=== PATIENT | female | born 1945 | race Caucasian/White ===

== ENCOUNTER 2018-09-08 12:09 | Inpatient (IN) ==
[2018-09-08] MEDS ORDERED: ASPIRIN 325 MG TABLET PO STA (12:40)
[2018-09-08] MEDS ORDERED: NITROGLYCERIN 2% OINT 1 INCH/GM PACK TOP STA (12:40)
[2018-09-08 12:52] LABS: Basophils % 0.3 % (0.0-0.8); Eosinophils # 0.1 10*3/uL (0.0-0.87); Eosinophils % 1.1 % (0.00-10.9); Hematocrit 34.2 VOL% (35.7-47.0); Hemoglobin 11.1 GM/DL (12.0-16.0); Immature Granulocytes % 0.5 %; Immature Granulocytes Absolute 0.03 #; Lymphocytes # 0.8 10*3/uL (1.4-4.0); Lymphocytes % 12.7 % (21.3-54.2); Mean Corpuscular HGB Conc 32.5 GM/DL (32-36); Mean Corpuscular Volume 88.6 FL (87-102); Mean Platelet Volume 9.4 FL (9.6-12.0); Monocytes % 3.5 % (1.7-12.7); Neutrophils % 81.9 % (38.7-73.9); Platelet Count 187 T/CUMM (130-400); Red Blood Count 3.86 MC/CUMM (3.8-5.5); Red Cell Distribution Width 12.5 % (9.3-17.3); White Blood Count 6.3 T/CUMM (4-12)
[2018-09-08 13:02] LABS: Partial Thromboplastin Time 26.7 SECS (0-40)
[2018-09-08 13:17] LABS: Alanine Aminotransferase 18 U/L (13-56); Albumin 3.4 G/DL (3.4-5.0); Alkaline Phosphatase 81 U/L (45-117); Aspartate Amino Transferase 15 U/L (0-37); Bilirubin,Total < 0.39 MG/DL (0.2-1.0); Blood Urea Nitrogen 17 MG/DL (7-18); Calcium 9.7 MG/DL (8.5-10.1); Glucose 196 MG/DL (74-106); Osmolality,Calculated 287.3 MOS/KG (273-304)
[2018-09-08 13:23] LABS: Apearance,Urine CLOUDY (Clear); Bacteria,Urine Occasional /HPF (Few); Bilirubin,Urine Negative (Negative); Blood, Urine Negative (Negative); Glucose,Urine (UA) Negative (Negative); Hyaline Casts,Urine 1 /LPF (0-3); Ketones,Urine Negative (Negative); Mucus,Urine Occasional /LPF (Occasional); Nitrite,Urine Positive (Negative); Protein,Urine Negative; RBC,Urine 15 /HPF (0-4); Squamous Epithelial Cell,Urine Occasional /HPF (0-10); Urine Color Yellow (Yellow); Urine Specific Gravity 1.025 (1.001-1.035); Urine Urobilinogen < 2.0 EU/DL (0.2-1.0); WBC,Urine 8 /HPF (0-6)
[2018-09-08 13:49] LABS: Barbiturates Screen,Urine Negative (Negative); Benzodiazepines Screen,Urine Positive (Negative); Cannabinoid Screen,Urine Negative (Negative); Opiate Screen,Urine Positive (Negative); Phencyclidine Screen,Urine Negative (Negative)
[2018-09-08] MEDS ORDERED: MAGNESIUM SULF RIDER 4 GM in PREMIX 1 EACH IV PRN (14:11)
[2018-09-08] MEDS ORDERED: ACETAMINOPHEN 325 MG TABLET PO PRN (14:11)
[2018-09-08] MEDS ORDERED: MAGNESIUM SULF RIDER 2 GM in PREMIX 1 EACH IV PRN (14:11)
[2018-09-08] MEDS ORDERED: ONDANSETRON 4 MG/2 ML VIAL IV PRN (14:11)
[2018-09-08] MEDS ORDERED: LEVOFLOXACIN INJ 500 MG in PREMIX 1 EACH IV STA (14:29)
[2018-09-08] MEDS: PANTOPRAZOLE 40 MG TABLET PO SCH (15:15)
[2018-09-08] MEDS ORDERED: ALUM/MAG/SIMETH/LIDO VISC 1:1 30 ML BOTTLE PO STA (16:14)
[2018-09-08] MEDS ORDERED: METOPROLOL TARTRATE 25 MG TABLET PO STA (16:53)
[2018-09-08] MEDS ORDERED: GLUCAGON 1 MG VIAL IM PRN (16:57)
[2018-09-08] MEDS ORDERED: DEXTROSE 50% 25 GM/50 ML SYRINGE IV PRN (16:57)
[2018-09-08] MEDS ORDERED: GABAPENTIN 400 MG CAPSULE PO SCH (17:00)
[2018-09-08] MEDS: GABAPENTIN 600 MG TABLET PO SCH (20:53)
[2018-09-08] MEDS: ZALEPLON 5 MG CAPSULE PO PRN (20:54)
[2018-09-08] MEDS: ROSUVASTATIN 20 MG TABLET PO SCH (21:01)
[2018-09-08] MEDS: INSULIN REGULAR 100 UNIT/ML SUBCUT SCH (21:04)
[2018-09-09] MEDS: HYOSCYAMINE 0.125 MG TABLET PO SCH ×4 (00:45→18:06)
[2018-09-09] MEDS: ZALEPLON 5 MG CAPSULE PO PRN ×2 (00:45→21:43)
[2018-09-09 04:56] LABS: Basophils % 0.2 % (0.0-0.8); Hematocrit 32.2 VOL% (35.7-47.0); Hemoglobin 10.7 GM/DL (12.0-16.0); Immature Granulocytes % 0.3 %; Immature Granulocytes Absolute 0.02 #; Lymphocytes # 0.5 10*3/uL (1.4-4.0); Lymphocytes % 8.5 % (21.3-54.2); Mean Corpuscular HGB Conc 33.2 GM/DL (32-36); Mean Platelet Volume 9.4 FL (9.6-12.0); Monocytes % 2.5 % (1.7-12.7); Neutrophils % 88.5 % (38.7-73.9); Platelet Count 183 T/CUMM (130-400); Red Cell Distribution Width 12.2 % (9.3-17.3); White Blood Count 6.1 T/CUMM (4-12)
[2018-09-09 05:27] LABS: Osmolality,Calculated 287.3 MOS/KG (273-304); Risk Ratio 5.68; Thyroid Stimulating Hormone 0.028 uIU/ml (0.358-3.74); VLDL CHOLESTEROL 37.2 MG/DL
[2018-09-09] MEDS: LEVOTHYROXINE 88 MCG TABLET PO SCH (06:10)
[2018-09-09] MEDS ORDERED: ASPIRIN EC 81 MG TABLET PO SCH (09:00)
[2018-09-09 09:07] LABS: Apearance,Urine CLEAR (Clear); Bilirubin,Urine Negative (Negative); Blood, Urine Negative (Negative); Glucose,Urine (UA) Negative (Negative); Ketones,Urine Negative (Negative); Nitrite,Urine Negative (Negative); Protein,Urine Negative; RBC,Urine <1 /HPF (0-4); Urine Color Straw (Yellow); Urine Specific Gravity 1.014 (1.001-1.035); Urine Urobilinogen < 2.0 EU/DL (0.2-1.0)
[2018-09-09] MEDS: PANTOPRAZOLE 40 MG TABLET PO SCH (09:14)
[2018-09-09] MEDS: amLODIPine 5 MG TABLET PO SCH (09:15)
[2018-09-09] MEDS: GABAPENTIN 600 MG TABLET PO SCH ×4 (09:15→21:43)
[2018-09-09] MEDS: LOSARTAN 50 MG TABLET PO SCH (09:15)
[2018-09-09] MEDS: INSULIN REGULAR 100 UNIT/ML SUBCUT SCH ×4 (09:17→21:44)
[2018-09-09] MEDS ORDERED: DIAZEPAM 5 MG TABLET PO ONE (11:50)
[2018-09-09] MEDS ORDERED: POTASSIUM CHLORIDE RIDER 10 MEQ in PREMIX 1 EACH IV PRN (11:50)
[2018-09-09] MEDS ORDERED: MAGNESIUM SULF RIDER 2 GM in PREMIX 1 EACH IV PRN (11:50)
[2018-09-09] MEDS ORDERED: diphenhydrAMINE CAP 25 MG CAPSULE PO ONE (11:50)
[2018-09-09 11:53] LABS: Free T4 (Free Thyroxine) 1.54 NG/DL (0.76-1.46)
[2018-09-09] MEDS ORDERED: METOPROLOL TARTRATE 25 MG TABLET PO SCH (12:00)
[2018-09-09] MEDS: SODIUM CHLORIDE 0.9% 1,000 ML IV SCH ×2 (15:41→21:39)
[2018-09-09] MEDS ORDERED: MIDAZOLAM 2 MG/2 ML VIAL ONE (15:54)
[2018-09-09] MEDS ORDERED: LIDOCAINE 1% 20 ML VIAL ONE (15:54)
[2018-09-09] MEDS ORDERED: fentaNYL 100 MCG/2 ML VIAL ONE ×2 (15:54→17:16)
[2018-09-09] MEDS ORDERED: HEPARIN 5,000 UNIT/1 ML VIAL ONE (16:05)
[2018-09-09] MEDS ORDERED: ASPIRIN CHEW 81 MG TABLET PO ONE (16:20)
[2018-09-09] MEDS ORDERED: TIROFIBAN 5,000 MCG/100 ML PREMIX IV ONE (16:20)
[2018-09-09] MEDS ORDERED: TICAGRELOR 90 MG TABLET ONE (16:31)
[2018-09-09] MEDS ORDERED: TIROFIBAN 5,000 MCG/100 ML PREMIX IV SCH (16:33)
[2018-09-09] MEDS ORDERED: ALUM/MAG/SIMETH/LIDO VISC 1:1 30 ML BOTTLE PO ONE (17:50)
[2018-09-09] MEDS: LEVOFLOXACIN 250 MG TABLET PO SCH (18:06)
[2018-09-09 18:54] LABS: Troponin I < 0.015 NG/ML (0.00-0.045)
[2018-09-09] MEDS: CARVEDILOL 3.125 MG TABLET PO SCH ×2 (21:41→21:43)
[2018-09-09] MEDS: ACETAMINOPHEN 325 MG TABLET PO SCH (21:42)
[2018-09-09] MEDS: traMADol 50 MG TABLET PO SCH (21:42)
[2018-09-09] MEDS: TICAGRELOR 90 MG TABLET PO SCH (21:43)
[2018-09-09] MEDS: ROSUVASTATIN 20 MG TABLET PO SCH (21:44)
[2018-09-10] MEDS: HYOSCYAMINE 0.125 MG TABLET PO SCH ×4 (00:05→21:01)
[2018-09-10 01:46] LABS: Basophils % 0.1 % (0.0-0.8); Hematocrit 29.7 VOL% (35.7-47.0); Hemoglobin 10.1 GM/DL (12.0-16.0); Immature Granulocytes % 0.6 %; Immature Granulocytes Absolute 0.04 #; Lymphocytes # 0.7 10*3/uL (1.4-4.0); Lymphocytes % 10.3 % (21.3-54.2); Mean Corpuscular Volume 85.6 FL (87-102); Mean Platelet Volume 9.3 FL (9.6-12.0); Monocytes % 9.2 % (1.7-12.7); Neutrophils % 79.8 % (38.7-73.9); Platelet Count 180 T/CUMM (130-400); Red Blood Count 3.47 MC/CUMM (3.8-5.5); Red Cell Distribution Width 12.6 % (9.3-17.3); White Blood Count 7.2 T/CUMM (4-12)
[2018-09-10 02:02] LABS: Calcium 9.4 MG/DL (8.5-10.1); Osmolality,Calculated 286.1 MOS/KG (273-304)
[2018-09-10] MEDS: LEVOTHYROXINE 88 MCG TABLET PO SCH (06:20)
[2018-09-10] MEDS: INSULIN REGULAR 100 UNIT/ML SUBCUT SCH ×4 (08:42→22:42)
[2018-09-10] MEDS: GABAPENTIN 600 MG TABLET PO SCH ×4 (08:57→21:03)
[2018-09-10] MEDS: LOSARTAN 50 MG TABLET PO SCH (08:57)
[2018-09-10] MEDS: PANTOPRAZOLE 40 MG TABLET PO SCH (08:57)
[2018-09-10] MEDS: TICAGRELOR 90 MG TABLET PO SCH ×2 (08:58→21:01)
[2018-09-10] MEDS: LEVOFLOXACIN 250 MG TABLET PO SCH (08:58)
[2018-09-10] MEDS: ACETAMINOPHEN 325 MG TABLET PO SCH ×2 (08:58→21:15)
[2018-09-10] MEDS: CARVEDILOL 3.125 MG TABLET PO SCH ×2 (08:59→21:02)
[2018-09-10] MEDS: traMADol 50 MG TABLET PO SCH ×2 (08:59→21:02)
[2018-09-10] MEDS: amLODIPine 5 MG TABLET PO SCH (09:00)
[2018-09-10 10:21] LABS: CKMB % 3.6 %
[2018-09-10 10:26] LABS: Troponin I 1.51 NG/ML (0.00-0.045)
[2018-09-10] MEDS ORDERED: oxyCODONE/ACETAMINOPHEN 5-325 MG TABLET PO PRN (14:56)
[2018-09-10] MEDS: ASPIRIN EC 81 MG TABLET PO SCH (15:45)
[2018-09-10] MEDS ORDERED: MAGNESIUM SULF RIDER 2 GM in PREMIX 1 EACH IV ONE (16:18)
[2018-09-10] MEDS: ZALEPLON 5 MG CAPSULE PO PRN (21:04)
[2018-09-10] MEDS: ROSUVASTATIN 20 MG TABLET PO SCH (21:15)
[2018-09-11] MEDS: HYOSCYAMINE 0.125 MG TABLET PO SCH ×3 (00:53→13:05)
[2018-09-11 06:28] LABS: Basophils % 0.3 % (0.0-0.8); Eosinophils % 0.5 % (0.00-10.9); Hematocrit 33.6 VOL% (35.7-47.0); Hemoglobin 11.2 GM/DL (12.0-16.0); Immature Granulocytes % 0.7 %; Immature Granulocytes Absolute 0.04 #; Lymphocytes # 1.3 10*3/uL (1.4-4.0); Lymphocytes % 22.5 % (21.3-54.2); Mean Corpuscular HGB Conc 33.3 GM/DL (32-36); Mean Corpuscular Volume 84.8 FL (87-102); Mean Platelet Volume 9.3 FL (9.6-12.0); Monocytes % 13.3 % (1.7-12.7); Neutrophils % 62.7 % (38.7-73.9); Platelet Count 209 T/CUMM (130-400); Red Blood Count 3.96 MC/CUMM (3.8-5.5); Red Cell Distribution Width 12.5 % (9.3-17.3); White Blood Count 5.7 T/CUMM (4-12)
[2018-09-11] MEDS ORDERED: LEVOTHYROXINE 50 MCG TABLET PO SCH (06:30)
[2018-09-11 06:52] LABS: Calcium 9.4 MG/DL (8.5-10.1)
[2018-09-11] MEDS: LOSARTAN 50 MG TABLET PO SCH (09:12)
[2018-09-11] MEDS: TICAGRELOR 90 MG TABLET PO SCH (09:12)
[2018-09-11] MEDS: traMADol 50 MG TABLET PO SCH (09:12)
[2018-09-11] MEDS: LEVOFLOXACIN 250 MG TABLET PO SCH (09:13)
[2018-09-11] MEDS: ASPIRIN EC 81 MG TABLET PO SCH (09:13)
[2018-09-11] MEDS: GABAPENTIN 600 MG TABLET PO SCH ×2 (09:13→13:04)
[2018-09-11] MEDS: amLODIPine 5 MG TABLET PO SCH (09:13)
[2018-09-11] MEDS: INSULIN REGULAR 100 UNIT/ML SUBCUT SCH ×2 (09:14→13:05)
[2018-09-11] MEDS: CARVEDILOL 3.125 MG TABLET PO SCH (09:14)
[2018-09-11] MEDS: ACETAMINOPHEN 325 MG TABLET PO SCH (09:14)
[2018-09-11] MEDS: PANTOPRAZOLE 40 MG TABLET PO SCH (09:14)
[2018-09-11 12:10] VITALS: BP 130/76
[2018-09-11] MEDS ORDERED: ISOSORBIDE MONONITRATE 30 MG TABLET PO SCH (13:00)
[2018-09-11] MEDS ORDERED: CARVEDILOL 6.25 MG TABLET PO SCH (13:30)
== END 2018-09-11 13:48 | disposition home or self-care (01) | DRG 247 ==
LOC: EDUNIT# → EDBD → N.ED 12:09 → N.EDINP 12:09 → N.TELEN 18:38
PROVIDERS: ADMIT Internal Medicine Cardiovascular Disease; ATTEND Internal Medicine Cardiovascular Disease
PROC: CLCCHCL (ICD-10-PCS; 2018-09-09 15:45)

== ENCOUNTER 2018-10-23 11:24 | Observation (INO) ==
[2018-10-23] MEDS ORDERED: NITROGLYCERIN 2% OINT 1 INCH/GM PACK TOP STA (11:44)
[2018-10-23] MEDS ORDERED: NITROGLYCERIN SL 0.4 MG TABLET SL PRN (11:44)
[2018-10-23] MEDS ORDERED: ONDANSETRON 4 MG/2 ML VIAL IV STA (11:44)
[2018-10-23] MEDS ORDERED: ENOXAPARIN 100 MG/ML SYRINGE SUBCUT STA (11:44)
[2018-10-23] MEDS ORDERED: ASPIRIN 325 MG TABLET PO STA (11:44)
[2018-10-23 12:10] LABS: Basophils % 0.4 % (0.0-0.8); Eosinophils # 0.2 10*3/uL (0.0-0.87); Eosinophils % 2.5 % (0.00-10.9); Hematocrit 33.4 VOL% (35.7-47.0); Hemoglobin 11.2 GM/DL (12.0-16.0); Immature Granulocytes % 0.3 %; Immature Granulocytes Absolute 0.02 #; Lymphocytes # 1.2 10*3/uL (1.4-4.0); Lymphocytes % 17.5 % (21.3-54.2); Mean Corpuscular HGB Conc 33.5 GM/DL (32-36); Mean Corpuscular Volume 85.2 FL (87-102); Mean Platelet Volume 9.9 FL (9.6-12.0); Monocytes % 11.1 % (1.7-12.7); Neutrophils % 68.2 % (38.7-73.9); Platelet Count 214 T/CUMM (130-400); Red Blood Count 3.92 MC/CUMM (3.8-5.5); Red Cell Distribution Width 13.6 % (9.3-17.3); White Blood Count 6.9 T/CUMM (4-12)
[2018-10-23 12:21] LABS: Partial Thromboplastin Time 26.3 SECS (0-40)
[2018-10-23 12:33] LABS: Albumin 3.9 G/DL (3.4-5.0); Bilirubin,Total 0.4 MG/DL (0.2-1.0); Calcium 9.9 MG/DL (8.5-10.1); Osmolality,Calculated 290.8 MOS/KG (273-304); Total Protein 6.2 G/DL (6.4-8.3)
[2018-10-23] MEDS ORDERED: MAGNESIUM SULF RIDER 4 GM in PREMIX 1 EACH IV PRN (14:36)
[2018-10-23] MEDS ORDERED: LACTULOSE 20 GM/30 ML UDCUP PO PRN (14:36)
[2018-10-23] MEDS ORDERED: BISACODYL 5 MG TABLET PO PRN (14:36)
[2018-10-23] MEDS ORDERED: ACETAMINOPHEN 325 MG TABLET PO PRN (14:36)
[2018-10-23] MEDS ORDERED: ZALEPLON 5 MG CAPSULE PO PRN (14:36)
[2018-10-23] MEDS ORDERED: ONDANSETRON 4 MG/2 ML VIAL IV PRN ×2 (14:36)
[2018-10-23] MEDS ORDERED: POTASSIUM CHLORIDE 20 MEQ TABLET PO PRN (14:36)
[2018-10-23] MEDS ORDERED: guaiFENesin/DM ER 600-30 MG TABLET PO PRN (14:36)
[2018-10-23] MEDS ORDERED: GLUCAGON 1 MG VIAL IM PRN (14:36)
[2018-10-23] MEDS ORDERED: MAGNESIUM SULF RIDER 2 GM in PREMIX 1 EACH IV PRN (14:36)
[2018-10-23] MEDS ORDERED: diphenhydrAMINE CAP 25 MG CAPSULE PO PRN (14:36)
[2018-10-23] MEDS ORDERED: DEXTROSE 50% 25 GM/50 ML VIAL IV PRN (14:36)
[2018-10-23] MEDS: SODIUM CHLORIDE 0.45% 1,000 ML IV SCH ×2 (15:20→23:27)
[2018-10-23] MEDS: LIDOCAINE 5% PATCH TRANSDERM SCH (15:23)
[2018-10-23 15:45] LABS: Troponin I < 0.015 NG/ML (0.00-0.045)
[2018-10-23] MEDS: INSULIN LISPRO 100 UNIT/ML SUBCUT SCH ×2 (16:07→20:29)
[2018-10-23] MEDS: GABAPENTIN 400 MG CAPSULE PO SCH ×2 (17:04→20:29)
[2018-10-23] MEDS: CARVEDILOL 6.25 MG TABLET PO SCH (17:04)
[2018-10-23 18:27] LABS: Troponin I < 0.015 NG/ML (0.00-0.045)
[2018-10-23] MEDS ORDERED: ROSUVASTATIN 20 MG TABLET PO SCH (21:00)
[2018-10-23] MEDS ORDERED: NAPROXEN 250 MG TABLET PO ONE (23:04)
[2018-10-24 05:56] LABS: Basophils % 0.2 % (0.0-0.8); Eosinophils # 0.2 10*3/uL (0.0-0.87); Eosinophils % 3.7 % (0.00-10.9); Hematocrit 30.1 VOL% (35.7-47.0); Hemoglobin 10.1 GM/DL (12.0-16.0); Immature Granulocytes % 0.2 %; Immature Granulocytes Absolute 0.01 #; Lymphocytes % 22.9 % (21.3-54.2); Mean Corpuscular HGB Conc 33.6 GM/DL (32-36); Mean Corpuscular Volume 85.3 FL (87-102); Monocytes % 13.6 % (1.7-12.7); Neutrophils % 59.4 % (38.7-73.9); Platelet Count 169 T/CUMM (130-400); Red Blood Count 3.53 MC/CUMM (3.8-5.5); Red Cell Distribution Width 13.4 % (9.3-17.3); White Blood Count 4.6 T/CUMM (4-12)
[2018-10-24 06:24] LABS: Calcium 9.5 MG/DL (8.5-10.1); Osmolality,Calculated 287.8 MOS/KG (273-304); Risk Ratio 4.61; Thyroid Stimulating Hormone 1.94 uIU/ml (0.358-3.74); VLDL CHOLESTEROL 65.8 MG/DL
[2018-10-24] MEDS ORDERED: LEVOTHYROXINE 50 MCG TABLET PO SCH (06:30)
[2018-10-24] MEDS ORDERED: LOSARTAN 50 MG TABLET PO SCH (09:00)
[2018-10-24] MEDS ORDERED: ALLOPURINOL 300 MG TABLET PO SCH (09:00)
[2018-10-24] MEDS ORDERED: ASPIRIN EC 81 MG TABLET PO SCH (09:00)
[2018-10-24] MEDS ORDERED: PANTOPRAZOLE 40 MG TABLET PO SCH (09:00)
[2018-10-24] MEDS ORDERED: FLUoxetine 20 MG CAPSULE PO SCH (09:00)
[2018-10-24] MEDS ORDERED: CLOPIDOGREL 75 MG TABLET PO SCH (09:00)
[2018-10-24] MEDS ORDERED: amLODIPine 5 MG TABLET PO SCH (09:00)
[2018-10-24] MEDS ORDERED: ISOSORBIDE MONONITRATE 30 MG TABLET PO SCH ×2 (09:00→12:00)
[2018-10-24] MEDS: INSULIN LISPRO 100 UNIT/ML SUBCUT SCH ×2 (09:09→11:47)
[2018-10-24] MEDS: GABAPENTIN 400 MG CAPSULE PO SCH ×2 (11:29→12:04)
[2018-10-24] MEDS: CARVEDILOL 6.25 MG TABLET PO SCH (11:29)
[2018-10-24] MEDS: SODIUM CHLORIDE 0.45% 1,000 ML IV SCH ×2 (11:31→12:04)
[2018-10-24] MEDS: LIDOCAINE 5% PATCH TRANSDERM SCH (11:31)
[2018-10-24 11:56] VITALS: BP 118/82
[2018-10-24] MEDS ORDERED: KETOROLAC 30 MG/1 ML VIAL IV ONE (12:00)
[2018-10-24] MEDS ORDERED: ENOXAPARIN 40 MG/0.4 ML SYRINGE SUBCUT SCH (12:30)
== END 2018-10-24 15:26 | disposition home or self-care (01) ==
LOC: N.EDINP 11:24 → N.ED 11:24 → N.EDINP 14:00 → N.TELES 14:26
PROVIDERS: ADMIT Internal Medicine Cardiovascular Disease; ATTEND Internal Medicine Cardiovascular Disease